=== PATIENT | male | born 1975 | race Caucasian/White ===

== ENCOUNTER 2017-08-12 11:34 | Outpatient (CLI) | payer MEDICAID, SELFPAY ==
[2017-08-12 11:44] VITALS: BP 120/80; PULSE 83; RESP 18; TEMP 36.7; O2SAT 96
== END 2017-08-12 12:00 | disposition home or self-care (01) ==
LOC: INF 11:36
PROVIDERS: PCP Family Medicine; Visit Provider Surgery
DX: Z01.818 Encounter for other preprocedural examination (principal); K46.9 Unspecified abdominal hernia without obstruction or gangrene; R10.32 Left lower quadrant pain
CPT/HCPCS: 96372

== ENCOUNTER → 2017-08-21 09:38 | Outpatient (CLI) | payer MEDICAID, SELFPAY ==
--- NOTE | 2017-08-21 09:40 | MR_ITS ---
MR pelvis wo con HISTORY: Left lower quadrant pain ITS.REASON: hernia,lower abd pain ORDERING PHYSICIAN: Tucker Renteria MD PATIENT AGE: 42 years Comparison: 08/04/2017 TECHNIQUE: Standard multiplanar multiecho sequences are performed without contrast of the pelvis. This is supplemented with oblique axial images to better evaluate the abdominal wall. FINDINGS: There is a small defect within the the fascia just inferior to the inferior margin of the transverses abdominis with some fat extending from the external iliac region lateral to the inferior epigastric artery consistent with a small indirect abdominal wall hernia. This does not extend into the inguinal canal. There is no abnormal signal intensity of the symphysis pubis or of the aponeurosis of the abdominal wall musculature with the symphysis pubis. IMPRESSION: Small defect within the left lateral and inferior abdominal wall containing fat with some minimal bulging of the fat in the left inguinal region consistent with a small indirect abdominal wall hernia.
== END ==
PROVIDERS: Family Provider Family Medicine; PCP Family Medicine; Visit Provider Surgery
DX: K46.9 Unspecified abdominal hernia without obstruction or gangrene (principal); R10.32 Left lower quadrant pain
CPT/HCPCS: 72195

== ENCOUNTER → 2017-09-30 08:19 | Outpatient (CLI) | payer MEDICAID, SELFPAY ==
--- NOTE | 2017-09-30 08:20 | US_ITS ---
US abdomen limited History:Right upper quadrant pain Ordering Physician:Tucker Renteria MD Patient Age: 42 years Comparison:None Findings: Pancreas:Unremarkable. No obvious mass or abnormal fluid collection. No ductal dilatation Liver:No focal liver lesions demonstrated. Homogeneous echogenicity. No intrahepatic biliary ductal dilatation evident Right Kidney:Unremarkable. Normal size and echogenicity. No hydronephrosis Gallbladder:No gallstones, gallbladder wall thickening, pericholecystic fluid, or biliary dilatation. Impression:Negative gallbladder/right upper quadrant ultrasound
== END ==
PROVIDERS: Family Provider Family Medicine; PCP Family Medicine; Visit Provider Surgery
DX: R10.11 Right upper quadrant pain (principal)
CPT/HCPCS: 76705

== ENCOUNTER → 2017-10-17 10:27 | Outpatient (CLI) | payer MEDICAID, SELFPAY ==
--- NOTE | 2017-10-17 10:30 | NM_ITS ---
HEPATOBILIARY SCAN WITH FATTY MEAL/ENSURE ORDERING PHYSICIAN : Tucker Renteria MD PATIENT AGE: 42 years GENDER: Male HISTORY: Right upper quadrant pain and nausea. Gallbladder thickening Following 7.94 millicuries Tc Choletec, images of the RUQ were obtained. There is prompt uptake of radionuclide by the liver which is grossly unremarkable. Small bowel is visualized. This initial portion of the study is normal. The gallbladder was allowed to fill out to 60 minutes. Fatty meal/1 can of ensure over administered with imaging performed over 60 minutes minutes. Thereafter. The obtain data was analyzed and reveals a 92 % gallbladder ejection fraction (normal greater than 50%; borderline 35-50%). This is normal value . Visual inspection which supports that there is significant contraction of the gallbladder as well IMPRESSION: Normal functioning gallbladder. 92 % % gallbladder ejection fraction by computer analysis. No pain with fatty meal.
== END ==
PROVIDERS: Family Provider Family Medicine; PCP Family Medicine; Visit Provider Surgery
DX: R10.11 Right upper quadrant pain (principal)
CPT/HCPCS: 78226; A9537

== ENCOUNTER → 2020-03-15 13:25 | Outpatient (CLI) | payer OTHER, SELFPAY ==
[2020-03-15 13:47] LABS: Basophils % 0.8 % (0.1-2.0); Eosinophils # 0.1 K/mm3 (0.0-0.4); Eosinophils % 1.3 % (0.1-12.0); Hematocrit 47.4 % (42.0-52.0); Hemoglobin 15.1 g/dL (14.1-18.0); Lymphocytes % 39.6 % (10-50); Mean Corpuscular HGB Conc 31.9 g/dL (31.8-35.4); Mean Corpuscular Hemoglobin 29.3 pg (27.0-31.2); Mean Corpuscular Volume 91.9 fl (80-94); Mean Platelet Volume 8.6 fl (7.4-10.4); Monocytes # 0.3 K/mm3 (0.1-1.0); Monocytes % 5.6 % (1.7-9.3); Neutrophils # 2.6 K/mm3 (1.8-7.8); Neutrophils % 52.7 % (37.0-80.0); Platelet Count 180 K/mm3 (142-424); Red Blood Count 5.16 M/mm3 (4.60-6.20); Red Cell Distribution Width 12.9 % (11.5-17.5)
[2020-03-15 14:04] LABS: Chloride 105 mmol/L (98-107); Potassium 4.4 mmoL/L (3.5-5.1); Sodium 142 mmol/L (136-145)
[2020-03-15 14:07] LABS: Alanine Aminotransferase 15 U/L (12-78); Albumin Level 4.9 g/dl (3.5-5.0); Albumin/Globulin Ratio 1.8 (1.1-1.8); Alkaline Phosphatase 64 U/L (38-126); Anion Gap 9.4 mEq/L (5-15); Aspartate Amino Transferase 25 U/L (17-59); Bilirubin,Total 0.7 mg/dl (0.2-1.3); Blood Urea Nitrogen 14 mg/dl (9-20); Carbon Dioxide 32 mmol/L (22.0-30.0); Estimated Glomerular Filt Rate 93 ml/min (>60); GFR (African American) 112 ML/MIN (>60); Globulin 2.7 g/dL (1.3-3.2); Glucose 95 mg/dl (74-100); Total Protein,Serum 7.6 g/dl (6.3-8.2)
== END ==
PROVIDERS: Visit Provider Surgery
DX: R10.11 Right upper quadrant pain (principal)
CPT/HCPCS: 36415; 80053; 85025

== ENCOUNTER → 2020-03-20 08:29 | Outpatient (CLI) | payer OTHER, SELFPAY ==
--- NOTE | 2020-03-20 08:29 | US_ITS ---
PROCEDURE: US GALLBLADDER CLINICAL INDICATION: right upper quad pain COMPARISON: No exams were available for comparison FINDINGS: Pancreas: Pancreas is not well delineated due to overlying bowel gas. CT or MRI without and with contrast with pancreatic protocol may provide further evaluation if clinically desired. Liver: Unremarkable. There is appropriate direction of blood flow within a non dilated portal vein. Right kidney: Unremarkable appearing. No hydronephrosis. Gallbladder: No stones are evident. There is no gallbladder wall thickening. Common duct is normal in diameter. IMPRESSION: Unremarkable gallbladder ultrasound. The pancreas is not imaged Dictated by: Geoff Zuniga MD 03/22/2020 08:49 Geoff Zuniga MD in [place] 03/22/2020 08:49
== END ==
PROVIDERS: PCP Family Medicine; Visit Provider Surgery
DX: R10.11 Right upper quadrant pain (principal)
CPT/HCPCS: 76705

== ENCOUNTER → 2020-04-11 10:37 | Outpatient (CLI) | payer OTHER, SELFPAY ==
--- NOTE | 2020-04-11 10:37 | NM_ITS ---
PROCEDURE: NM HEPATOBILIARY W PHARM CLINICAL INDICATION: Right upper quad pain COMPARISON: No exams were available for comparison TECHNIQUE: DOSE: 8.1 mCi technetium Choletec and 1.7 mcg of CCK. FINDINGS: Homogeneous activity is present within the hepatic parenchyma. Activity is present in the gallbladder by 10 minutes. Activity is present in the small bowel by 10 minutes. The gallbladder ejection fraction is calculated to be 96 percent. CCK-The patient did not report pain or other symptoms during CCK infusion. IMPRESSION: Unremarkable hepatobiliary scan with normal gallbladder ejection fraction Dictated by: Geoff Zuniga MD 04/11/2020 17:18 Geoff Zuniga MD in [facility] 04/11/2020 17:18
--- NOTE | 2020-04-11 10:50 | HMH.ITSHM ---
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 []BLOOD PRESSURE MED
== END ==
PROVIDERS: PCP Family Medicine; Visit Provider Surgery
DX: R10.11 Right upper quadrant pain (principal)
CPT/HCPCS: 78227; A9537; J2805

== ENCOUNTER 2021-09-09 21:25 | Observation (INO) | payer OTHER, SELFPAY ==
[2021-09-09 21:25] VITALS: BP 202/114; PULSE 81; RESP 20; TEMP 36.6; O2SAT 99; BMI 26.4
[2021-09-09 22:00] VITALS: BP 140/90; PULSE 67; RESP 14; O2SAT 96
--- NOTE | 2021-09-09 22:13 | CT_ITS ---
PROCEDURE INFORMATION: Exam: CT Head Without Contrast Exam date and time: 09/09/2021 11:11 PM Age: 46 years old Clinical indication: Weakness, extremity; Left; Additional info: Numbness left arm TECHNIQUE: Imaging protocol: Computed tomography of the head without contrast. Radiation optimization: All CT scans at this facility use at least one of these dose optimization techniques: automated exposure control; mA and/or kV adjustment per patient size (includes targeted exams where dose is matched to clinical indication); or iterative reconstruction. COMPARISON: No relevant prior studies available. FINDINGS: Brain: The IACs are grossly normal. No extra-axial fluid collections. No evidence of acute intracranial hemorrhage. No CT evidence of large territory acute or subacute intracranial ischemia/infarct. No intracranial mass lesions. No midline shift or herniation. Cerebral ventricles: Ventricles normal. Pituitary gland and sella: The sella is grossly normal. Paranasal sinuses: Opacified left posterior ethmoid air cell suggesting mild changes of chronic sinus inflammatory disease. No fluid levels. Mastoid air cells: Visualized mastoid air cells are clear. Bones/joints: The calvarium and visualized facial bones are intact. Soft tissues: The scalp and visualized soft tissues demonstrate no acute abnormality. Vasculature: The visualized major intracranial arterial segments demonstrate no gross abnormality by noncontrast CT. No asymmetric vascular hyperdensities suggestive of thrombosis are identified. Other findings: Visualized orbital contents demonstrate no acute abnormality. Fontenot-white differentiation is well maintained. IMPRESSION: No acute intracranial process. No intracranial hemorrhage or mass effect.
--- NOTE | 2021-09-09 22:13 | XR_ITS ---
PROCEDURE INFORMATION: Exam: XR Chest Exam date and time: 09/09/2021 11:02 PM Age: 46 years old Clinical indication: Sternal or substernal pain; Additional info: Cp and left arm weakness TECHNIQUE: Imaging protocol: Radiologic exam of the chest. Views: 2 views. COMPARISON: ABDPELWO CT abdomen pelvis wo con 08/04/2017 2:44 PM FINDINGS: Lungs: Normal pulmonary expansion. Pulmonary vasculature grossly normal. No gross pulmonary infiltrates or edema pattern. Pleural spaces: No pleural effusion. No pneumothorax. Heart/Mediastinum: Heart size normal. No tracheal/mediastinal shift. Bones/joints: No acute osseous abnormalities are identified. IMPRESSION: No acute thoracic process.
--- NOTE | 2021-09-09 22:16 | ECG_ITS ---
APPROVED REPORT Exam: Resting ECG HR:78 bpm ECG Measurements Heart Rate 78 AXES MT 149 P 79 QRSd 87 QRS 90 QT 377 T 45 QTc 410 Conclusion SINUS RHYTHM NORMAL ECG UNCONFIRMED REPORT Electronically signed by : Sundar Ellsworth MD 09/11/2021 21:11:12
[2021-09-09 22:30] LABS: Basophils # 0.1 K/mm3 (0-0.2); Basophils % 0.5 % (0.1-2.0); Eosinophils % 0.3 % (0.1-12.0); Hematocrit 46.6 % (42.0-52.0); Hemoglobin 16.1 g/dL (14.1-18.0); Lymphocytes # 2.7 K/mm3 (0.7-4.5); Lymphocytes % 17.6 % (10-50); Mean Corpuscular HGB Conc 34.5 g/dL (31.8-35.4); Mean Corpuscular Hemoglobin 30.9 pg (27.0-31.2); Mean Corpuscular Volume 89.4 fl (80-94); Monocytes # 0.9 K/mm3 (0.1-1.0); Monocytes % 5.9 % (1.7-9.3); Neutrophils # 11.5 K/mm3 (1.8-7.8); Neutrophils % 75.7 % (37.0-80.0); Platelet Count 235 K/mm3 (142-424); Red Blood Count 5.21 M/mm3 (4.60-6.20); Red Cell Distribution Width 13.2 % (11.5-17.5); White Blood Count 15.1 K/mm3 (4.8-10.8)
[2021-09-09 22:31] VITALS: BP 141/89; PULSE 63; RESP 14; O2SAT 98
[2021-09-09 22:33] LABS: Alanine Aminotransferase 32 U/L (12-78); Albumin Level 4.7 g/dl (3.5-5.0); Alkaline Phosphatase 81 U/L (38-126); Anion Gap 13.5 mEq/L (5-15); Aspartate Amino Transferase 35 U/L (17-59); Bilirubin,Indirect 0.4 mg/dL (0.0-0.9); Bilirubin,Total 0.4 mg/dl (0.2-1.3); Bilirubin,Unconjugated 0.6 mg/dL (0.0-1.1); Blood Urea Nitrogen 13 mg/dl (9-20); Carbon Dioxide 25 mmol/L (22.0-30.0); Chloride 108 mmol/L (98-107); Creatinine Clearance Estimated 104 mL/min (50-200); Estimated Glomerular Filt Rate 73 ml/min (>60); GFR (African American) 88 ML/MIN (>60); Glucose 153 mg/dl (74-100); Magnesium 2.1 mg/dl (1.6-2.3); Potassium 3.5 mmoL/L (3.5-5.1); Sodium 143 mmol/L (136-145); Total Protein,Serum 7.6 g/dl (6.3-8.2)
[2021-09-09 22:44] LABS: NT Pro Brain Natriuretic Pep. 75.3 pg/mL (0-125)
[2021-09-09 22:46] LABS: MANUAL DIFFERENTIAL MANUAL DIFFERENTIAL (MANUAL DIFF)
[2021-09-09 22:50] LABS: Troponin I < 0.01 ng/ml (0.00-0.034)
[2021-09-09 22:52] LABS: Lymphocytes % 12 % (10-50); Monocytes % 3 % (2-9); Neutrophils % 81 % (42-76); Platelet Estimate Normal; RBC Morphology Normal; Total Cells Counted 100
[2021-09-09 22:54] LABS: Erythrocyte Sedimentation Rate 4 mm/hr (0-15)
[2021-09-09 23:00] VITALS: BP 155/99; PULSE 66; RESP 14; O2SAT 97
[2021-09-09 23:30] VITALS: BP 156/100; PULSE 62; RESP 15; O2SAT 97
[2021-09-10] VITALS (11 sets, daily range): BP systolic 130–157; BP diastolic 77–100; PULSE 50–77; RESP 9–20; TEMP 36.4–36.8; O2SAT 96–99; BMI 26.8; BMI 30.8; BMI 30.9
--- NOTE | 2021-09-10 00:44 | HMH.EDCP ---
ED Disposition Clinical Impression: Tobacco use Chest pain Qualifiers: Chest pain type: precordial pain Qualified Code(s): R07.2 - Precordial pain Hypertensive disease Qualifiers: Hypertension type: primary hypertension Qualified Code(s): I10 - Essential (primary) hypertension Disposition: Admitted as Observation Condition on Discharge: Good Referrals: Fransisco Pedro MD [Primary Care Provider] - - Critical Care Critical Care Time: No Attestation: On 09/09/21, the high probability of a clinically significant, sudden or life threatening deterioration of the following system(s) required my full and direct attention, intervention and personal management. The time I documented below is in addition to time spent performing reported procedures but includes the following listed in this critical care notation. Medical Decision Making - Medical Records Medical records reviewed: Yes: I reviewed the patient's medical records. - Sergio Inquiry Pt receiving controlled substance: No Vital Signs: 09/09/21 21:25 Temperature 97.8 F Temperature Source Oral Pulse Rate [Right] 81 Respiratory Rate 20 Blood Pressure [Right Arm] 202/114 H Blood Pressure Mean [Right Arm] 143 Blood Pressure Source [Right Arm] Automatic Cuff 02 Sat by Pulse Oximetry 99 Oxygen Delivery Method Room Air - Lab Data Lab results reviewed: Yes: I reviewed the patient's lab results. Lab Results 09/09/21 21:26: WBC 15.1 H, RBC 5.21, Hgb 16.1, Hct 46.6, MCV 89.4, MCH 30.9, MCHC 34.5, RDW 13.2, Plt Count 235, MPV 9.0, Neut % (Auto) 75.7, Lymph % (Auto) 17.6, Cocke % (Auto) 5.9, Eos % (Auto) 0.3, Baso % (Auto) 0.5, Neut # (Auto) 11.5 H, Lymph # (Auto) 2.7, Cocke # (Auto) 0.9, Eos # (Auto) 0.0, Baso # (Auto) 0.1, Total Counted 100, Neutrophils % (Manual) 81 H, Band Neutrophils % 4.0, Lymphocytes % (Manual) 12, Monocytes % (Manual) 3, Platelet Estimate Normal, RBC Morphology Normal, ESR 4 09/09/21 21:26: Sodium 143, Potassium 3.5, Chloride 108 H, Carbon Dioxide 25, Anion Gap 13.5, BUN 13, Creatinine 1.10, Estimated Creat Clear 104, Estimated GFR 73, Est GFR ( Amer) 88, Glucose 153 H, Calcium 10.0, Magnesium 2.1, Troponin I < 0.01, C-Reactive Protein 4.0, Procalcitonin 0.040 09/09/21 21:26: NT-Pro-B Natriuret Pep 75.3 09/09/21 21:26: Total Bilirubin 0.4, Direct Bilirubin 0.0, Conjugated Bilirubin 0.0, Indirect Bilirubin 0.4, Unconjugated Bilirubin 0.6, AST 35, ALT 32, Alkaline Phosphatase 81, Total Protein 7.6, Albumin 4.7 Result diagrams: 09/09/21 21:26 09/09/21 21:26 Orders (Tests/Meds): ED MEDICATIONS Generic Name Dose Route Start Last Admin Trade Name Freq PRN Reason Stop Dose Admin Sodium Chloride 1,000 mls @ 999 mls/hr 09/09/21 22:30 09/09/21 22:20 Sod Chlor 0.9% 1000ml Bag IV 09/09/21 23:30 999 mls/hr .Q1H1M INESSA Administration Discontinued Medications Generic Name Dose Route Start Last Admin Trade Name Freq PRN Reason Stop Dose Admin Aspirin 324 mg 09/09/21 22:16 09/09/21 22:20 Aspirin 81mg Chewable Tablet PO 09/09/21 22:17 324 mg ONCE ONE Administration Nitroglycerin 0.4 mg 09/09/21 22:16 09/09/21 22:19 Nitroglycerin 0.4mg Sl Tablet SL 09/09/21 22:17 0.4 mg ONCE ONE Administration ORDERS Category Date Time Status Rapid PCR Covid and Flu A/B Stat Lab 09/09/21 22:13 Ordered Troponin I Q3H Lab 09/10/21 01:15 Ordered Troponin I Q3H Lab 09/10/21 04:15 Ordered UA [Urinalysis and Microscopic] Stat Lab 09/09/21 22:16 Ordered - Radiology Data #1 Image(s): Chest Image Reviewed: Yes I have reviewed radiologist's interpretation Preliminary Findings: Normal/NAD - CT Data CT Scan: Head Time Received: 00:[address] Reviewed: Yes: I have viewed the radiologist's interpretation Preliminary Findings: Normal/NAD - ECG Data Tracing #1 Normal Sinus Rhythm: Yes Ischemic changes: non-specific ST-T wave changes - Physician Consults Physician Consulted: reji Reason -: A
[2021-09-10 00:50] LABS: Coronavirus 19, PCR Not Detected (NotDetected); Influenza A, PCR Not Detected (NotDetected); Influenza B, PCR Not Detected (NotDetected)
[2021-09-10 01:50] LABS: Troponin I < 0.01 ng/ml (0.00-0.034)
--- NOTE | 2021-09-10 02:03 | PC.NURSE ---
patient up to floor via wheelchair @ this time.
[2021-09-10 04:25] LABS: Basophils % 0.5 % (0.1-2.0); Eosinophils # 0.1 K/mm3 (0.0-0.4); Mean Corpuscular Volume 89.2 fl (80-94)
[2021-09-10 04:31] LABS: Eosinophils % 1.3 % (0.1-12.0); Hematocrit 39.3 % (42.0-52.0); Lymphocytes # 2.4 K/mm3 (0.7-4.5); Lymphocytes % 37.6 % (10-50); Mean Corpuscular HGB Conc 34.7 g/dL (31.8-35.4); Mean Platelet Volume 8.5 fl (7.4-10.4); Monocytes # 0.4 K/mm3 (0.1-1.0); Monocytes % 5.9 % (1.7-9.3); Neutrophils # 3.5 K/mm3 (1.8-7.8); Neutrophils % 54.6 % (37.0-80.0); Platelet Count 167 K/mm3 (142-424); Red Blood Count 4.41 M/mm3 (4.60-6.20); Red Cell Distribution Width 13.2 % (11.5-17.5); White Blood Count 6.4 K/mm3 (4.8-10.8)
[2021-09-10 04:32] LABS: Hemoglobin 13.7 g/dL (14.1-18.0)
[2021-09-10 04:33] LABS: Anion Gap 6.5 mEq/L (5-15); Blood Urea Nitrogen 15 mg/dl (9-20); Calcium 8.4 mg/dl (8.4-10.2); Carbon Dioxide 26 mmol/L (22.0-30.0); Chloride 114 mmol/L (98-107); Chol/HDL Ratio 4.4 (1-3.5); Cholesterol 200 mg/dl (140-200); Creatinine Clearance Estimated 128 mL/min (50-200); Estimated Glomerular Filt Rate 92 ml/min (>60); GFR (African American) 111 ML/MIN (>60); HDL Cholesterol 45 mg/dl (40-60); Potassium 4.5 mmoL/L (3.5-5.1); Sodium 142 mmol/L (136-145); Triglycerides 83 mg/dl (30-150); VLDL Cholesterol 17 mg/dL (0-40)
[2021-09-10 04:36] LABS: Glucose 100 mg/dl (74-100)
[2021-09-10 04:37] LABS: Magnesium 1.8 mg/dl (1.6-2.3)
[2021-09-10 04:51] LABS: Troponin I < 0.01 ng/ml (0.00-0.034)
--- NOTE | 2021-09-10 06:21 | PC.NURSE ---
No acute changes. Pt has rested well. Denies CP or soa. Pt c/o neck pain and numbness in (L) arm when pt arrived to floor. VSS. BP has improved. Waiting to obtain UA from pt. Pt NPO. Call light within reach. Family at bedside.
--- NOTE | 2021-09-10 07:12 | P.CONPHA_ITS ---
[facility] Pharmacy VTE Monitoring - Patient Demographics Admission date: 09/10/21 Report Date: 09/10/21 Time: 07:12 Allergies/Adverse Reactions: Patient Allergies No Known Allergies Allergy (Verified 04/12/20 09:49) Height: 1.68 m Weight: 87.407 kg Patient Problems: Current Active Problems Chest pain (Acute) Hypertensive disease (Acute) Tobacco use (Acute) - VTE Risk Labs: VTE Related Lab Results Hgb 13.7 g/dL (14.1-18.0) L D 09/10/21 04:15 Hct 39.3 % (42.0-52.0) L 09/10/21 04:15 Plt Count 167 K/mm3 (142-424) D 09/10/21 04:15 BUN 15 mg/dl (9-20) 09/10/21 04:15 Creatinine 0.90 mg/dl (0.66-1.25) 09/10/21 04:15 Estimated Creat Clear 128 mL/min (50-200) 09/10/21 04:15 - Prophylaxis VTE Prophylaxis Ordered?: Yes Types of VTE Prophylaxis: TEDS Knee High Location of Applied Device: Bilateral Lower Extremeties
--- NOTE | 2021-09-10 07:12 | HMH.PHAINT ---
MEDICATION RECONCILIATION COMPLETED ON PATIENT VIA PATIENT INTERVIEW. PATIENT TAKES LOSARTAN 50MG, BUT DOES NOT TAKE REGULARLY. -LEON CRUZ, MIGUEL ANGELD
--- NOTE | 2021-09-10 08:00 | CA_ITS ---
APPROVED REPORT EXAM: Comprehensive 2D, Doppler, and color-flow Echocardiogram [employer]: Jenni Avelar RDCS Ht: 5 ft 11 in Wt: 190lbs BSA: 2.06 BP: 202/114 mmHg Indications: CP,HTN, M-Mode Dimensions RVDd 1.83 cm (0.9-2.6) LA Diam 3.85 cm (1.9-4.0) LVDd 6.10 cm (3.5-5.7) Ao Diam 2.78 cm (2.0-3.7) LVDs 3.89 cm (3.5-5.7) IVSd 0.80 cm (0.6-1.1) PWd 0.84 cm (0.6-1.1) EF (Teich) 65.00% FS 36.20% EDV (Teich) 186.90 mL TAPSE 2.13 (<1.7) ESV (Teich) 65.50 mL LV Diastology E Decel Time 127.00 (160-240 msec) E/A Ratio 1.2 MED E' 11.70 (< 7 cm/sec) E'/MED E' Ratio 5.50 (>14) LAT E' 12.20 (<10 cm/sec) E/LAT E' Ratio 5.27 (>14) Mitral Valve MV E Max George. 64.00 (40-130 cm/s) MV A Velocity 53.00 (40-130 cm/s) E/A Ratio 1.21 MV Decel. Time 127.00 (160-240 ms) MV PHT 37.00 ms Tricuspid Valve TR P. Velocity 187.00 cm/s RAP Estimate 10.00 mmHg RVSP 24.00 mmHg Left Ventricle Left atrium normal size left ventricle is normal size there is no concentric left ventricular hypertrophy, estimated ejection fraction 55% with no regional wall motion abnormality, diastolic parameters are within normal range. Right Ventricle Right atrium and right ventricle are normal size and contractility. Aortic Valve Aortic valve is minimally thickened and fibrosed there is trace aortic insufficiency. Mitral Valve Mitral valve is grossly normal, there is trace mitral regurgitation. Tricuspid Valve Tricuspid valve grossly normal, there is trace tricuspid regurgitation, tricuspid regurgitation jet velocity is inadequate for calculation of the right ventricular systolic pressure. Pulmonic Valve Pulmonic valve is poorly visualized. Great Vessels Aortic root is normal size. Inferior vena cava is normal size with normal inspiratory collapse. Pericardium No significant pericardial effusion noted. Conclusion 1. Normal left ventricular size, preserved left ventricular systolic function, estimated ejection fraction 55% with no regional wall motion abnormality, diastolic parameters are within normal range. 2. Trace aortic, mitral and tricuspid regurgitation. 3. No significant pericardial effusion noted. 4. Inferior vena cava is normal size with normal inspiratory collapse. Electronically signed by : Oren Mcgill MD 09/10/2021 19:34:37
--- NOTE | 2021-09-10 09:06 | HMH.CNCARD ---
History of Present Illness Consult date: 09/10/21 Requesting physician: Rubio Cyr Chief complaint: chest pain, arm pain Additional Medical History:: 1. Hypertension with medication noncompliance 2. Hyperlipidemia 3. Tobacco use 4. Alcohol use History of present illness: 46-year-old white male admitted through the ER for 1 hour of left arm numbness with chest heaviness and associated diaphoresis. In addition to the chest discomfort and left arm discomfort patient describes perioral numbness and drawing up of his hands with what sounds like hyperventilation. Evaluation in the ER revealed elevated blood pressure of 202/114 mmHg. He was given sublingual nitroglycerin with improvement in both blood pressure and chest discomfort. His troponins have returned normal x3 overnight. His EKG showed sinus rhythm with no acute ST segment changes. Preliminary echocardiogram shows preserved ejection fraction with no significant valve disease. In further questioning the patient has a history of hypertension but only takes his medication as he thinks he needs it. He does complain of recent visual changes and headaches. When asked about his smoking and drinking he is elusive in both answers. [facility] [place] History Medical History: Reports:: Hypertension, Seizures Denies:: Diabetes Mellitus Type 1, Diabetes Mellitus Type 2, Internal Pacemaker, Lung Disease *Have you ever received a pneumonia vaccine?: No *Have you received a flu vaccine this season?: No Laterality Cases: Bilateral: Tonsillectomy Other Surgeries: Yes: Colonoscopy, EGD, Hernia Repair. No: Pacemaker - *Social History Smoking Status: Current every day smoker Tobacco Type: cigarettes # Packs/Day (cigarettes): 1 Alcohol Intake: current Alcohol Intake Frequency:: holidays/special occasions only Substance Use Type: marijuana *Occupational Status:: employed *Travel in the last 8 weeks: Inside the [facility] Family Hx:: Cancer, Coronary Artery Disease, Diabetes, Heart Attack, Hyperlipidemia, Hypertension Meds Home Medications Medication Instructions Recorded Confirmed Type losartan 50 mg tablet 50 mg PO DAILY tab 04/12/20 09/10/21 History Allergies Allergy/AdvReac Type Severity Reaction Status Date / Time No Known Allergies Allergy Verified 04/12/20 09:49 Exam Vital signs and Labs for Last 24 Hours: Temp Pulse Resp BP Pulse Ox 97.7 F 59 L 14 134/81 99 09/10/21 08:00 09/10/21 08:00 09/10/21 08:00 09/10/21 08:00 09/10/21 08:00 Laboratory Results - last 24 hr 09/09/21 21:26: WBC 15.1 H, RBC 5.21, Hgb 16.1, Hct 46.6, MCV 89.4, MCH 30.9, MCHC 34.5, RDW 13.2, Plt Count 235, MPV 9.0, Neut % (Auto) 75.7, Lymph % (Auto) 17.6, Sterling % (Auto) 5.9, Eos % (Auto) 0.3, Baso % (Auto) 0.5, Neut # (Auto) 11.5 H, Lymph # (Auto) 2.7, Sterling # (Auto) 0.9, Eos # (Auto) 0.0, Baso # (Auto) 0.1, Total Counted 100, Neutrophils % (Manual) 81 H, Band Neutrophils % 4.0, Lymphocytes % (Manual) 12, Monocytes % (Manual) 3, Platelet Estimate Normal, RBC Morphology Normal, ESR 4 09/09/21 21:26: Sodium 143, Potassium 3.5, Chloride 108 H, Carbon Dioxide 25, Anion Gap 13.5, BUN 13, Creatinine 1.10, Estimated Creat Clear 104, Estimated GFR 73, Est GFR ( Amer) 88, Glucose 153 H, Calcium 10.0, Magnesium 2.1, Troponin I < 0.01, C-Reactive Protein 4.0, Procalcitonin 0.040 09/09/21 21:26: NT-Pro-B Natriuret Pep 75.3 09/09/21 21:26: Total Bilirubin 0.4, Direct Bilirubin 0.0, Conjugated Bilirubin 0.0, Indirect Bilirubin 0.4, Unconjugated Bilirubin 0.6, AST 35, ALT 32, Alkaline Phosphatase 81, Total Protein 7.6, Albumin 4.7 09/10/21 00:45: SARS-CoV-2 (PCR) Not detected, Influenza A Untype (PCR) Not detected, Influenza Type B (PCR) Not detected 09/10/21 01:00: Troponin I < 0.01 09/10/21 04:15: WBC 6.4 D, RBC 4.41 L, Hgb 13.7 L D, Hct 39.3 L, MCV 89.2, MCH 31.0, MCHC 34.7, RDW 13.2, Plt Count 167 D, MPV 8.5, Neut % (Auto) 54.6, Lymph % (Auto) 37.6, Sterling % (Auto) 5.9, Eos % (Auto) 1.3, Baso % (A
[2021-09-10 10:50] LABS: Microscopic, Urine URINE MICROSCOPIC (MICROSCOPIC)
[2021-09-10 10:52] LABS: Appearance,Urine CLEAR (Clear); Bilirubin,Urine Negative (Negative); Blood, Urine Negative (Negative); Color,Urine YELLOW (Yellow); Glucose,Urine (UA) Negative (Negative); Ketones,Urine 1+ (Negative); Leukocyte Esterase,Urine TRACE (Negative); Nitrate,Urine Negative (Negative); PH,Urine 6.5 (5.0-8.5); Protein,Urine Negative (Negative)
[2021-09-10 11:15] LABS: Bacteria,Urine Trace /lpf
--- NOTE | 2021-09-10 13:43 | HMH.HPDC ---
<Johanne Balderrama - Last Filed: 09/10/21 14:32> General - General Admission date:: 09/10/21 Discharge date: 09/10/21 *Admission Date: 09/10/21 *Chief complaint: Chest pain *History of present illness: Documentation as per cardiology this a.m.: 46-year-old white male admitted through the ER for 1 hour of left arm numbness with chest heaviness and associated diaphoresis. In addition to the chest discomfort and left arm discomfort patient describes perioral numbness and drawing up of his hands with what sounds like hyperventilation. Evaluation in the ER revealed elevated blood pressure of 202/114 mmHg. He was given sublingual nitroglycerin with improvement in both blood pressure and chest discomfort. His troponins have returned normal x3 overnight. His EKG showed sinus rhythm with no acute ST segment changes. Preliminary echocardiogram shows preserved ejection fraction with no significant valve disease. In further questioning the patient has a history of hypertension but only takes his medication as he thinks he needs it. He does complain of recent visual changes and headaches. When asked about his smoking and drinking he is elusive in both answers. At the time of this exam patient is comfortable. Denies chest pain and shortness of breath. He is hungry for breakfast. [facility] History Medical History: Reports:: Hypertension, Seizures Denies:: Diabetes Mellitus Type 1, Diabetes Mellitus Type 2, Internal Pacemaker, Lung Disease *Have you ever received a pneumonia vaccine?: No *Have you received a flu vaccine this season?: No Laterality Cases: Bilateral: Tonsillectomy Other Surgeries: Yes: Colonoscopy, EGD, Hernia Repair. No: Pacemaker - *Social History Smoking Status: Current every day smoker Tobacco Type: cigarettes # Packs/Day (cigarettes): 1 Alcohol Intake: current Alcohol Intake Frequency:: holidays/special occasions only Substance Use Type: marijuana *Occupational Status:: employed Housing: house Household Members: none *Travel in the last 8 weeks: Inside the [place] Family Hx:: Cancer, Coronary Artery Disease, Diabetes, Heart Attack, Hyperlipidemia, Hypertension Review of Systems - Constitutional Denies body ache(s), Denies fever(s) - Eyes Reports change in vision - ENT Reports dizziness, Denies ear pain, Denies sore throat - *Cardiovascular Reports chest pain, Reports shortness of breath, Denies irregular heart rhythm, Denies leg swelling - *Respiratory Reports shortness of breath, Denies chest congestion, Denies cough - *Gastrointestinal Denies abdominal pain, Denies loose stools, Denies vomiting blood, Denies bright, red blood in stools, Denies nausea, Denies vomiting - *Genitourinary Denies difficulty urinating - *Musculoskeletal Denies abnormal walking, Denies body aches - *Neurologic Denies abnormal walking, Denies behavioral changes, Denies seizure-like activity, Denies unsteadiness, Denies frequent falls, Denies seizure-like activity Exam Vital signs and Labs for Last 24 Hours: Temp Pulse Resp BP Pulse Ox 97.5 F L 65 16 135/77 99 09/10/21 11:35 09/10/21 11:35 09/10/21 11:35 09/10/21 11:35 09/10/21 11:35 Laboratory Results - last 24 hr 09/09/21 21:26: WBC 15.1 H, RBC 5.21, Hgb 16.1, Hct 46.6, MCV 89.4, MCH 30.9, MCHC 34.5, RDW 13.2, Plt Count 235, MPV 9.0, Neut % (Auto) 75.7, Lymph % (Auto) 17.6, Sanders % (Auto) 5.9, Eos % (Auto) 0.3, Baso % (Auto) 0.5, Neut # (Auto) 11.5 H, Lymph # (Auto) 2.7, Sanders # (Auto) 0.9, Eos # (Auto) 0.0, Baso # (Auto) 0.1, Total Counted 100, Neutrophils % (Manual) 81 H, Band Neutrophils % 4.0, Lymphocytes % (Manual) 12, Monocytes % (Manual) 3, Platelet Estimate Normal, RBC Morphology Normal, ESR 4 09/09/21 21:26: Sodium 143, Potassium 3.5, Chloride 108 H, Carbon Dioxide 25, Anion Gap 13.5, BUN 13, Creatinine 1.10, Estimated Creat Clear 104, Estimated GFR 73, Est GFR ( Amer) 88, Glucose 153 H, Calcium 10.0, Magnesium 2.1, Troponin I < 0.01, C[place]
--- NOTE | 2021-09-10 14:34 | HMH.PHAINT ---
DISCHARGE MEDICATION COUNSELING PROVIDED TO PATIENT. DISCUSSED NEW METOPROLOL SUCCINATE PRESCRIPTION. DISCUSSED TO TAKE DAILY, WATCH FOR DIZZINESS, LIGHTHEADEDNESS, SLOWED HEART RATE. TOLD THE NEW PRESCRIPTION AND REFILLS FOR LOSARTAN [facility] SU[facility] SPECIAL[facility]. ASKED PATIENT IF HE MONITORS BLOOD PRESSURE AT HOME AND HE STATED HE DOES AND WILL MONITOR MORE FREQUENTLY SINCE STARTING NEW MEDICATION. PATIENT ENDORSED NO QUESTIONS AT THIS TIME.
--- NOTE | 2021-09-12 11:59 | CARE MANAGER ---
Contacted patient related to hospital discharge. States that he is keeping track of his blood pressure and taking the new blood pressure medication and it is doing much better. We discussed his follow up appointments and he denied other questions or concerns. HENRIK Robertson
== END 2021-09-10 15:15 | disposition home or self-care (01) ==
LOC: ER 21:52 → 2ND 09-10 00:54
PROVIDERS: Admitting Provider Family Medicine; Emergency Provider Emergency Medicine; PCP Family Medicine; Visit Provider Family Medicine
DX: R07.9 Chest pain, unspecified (principal); I10 Essential (primary) hypertension; F17.210 Nicotine dependence, cigarettes, uncomplicated; Z91.19 Patient's noncompliance with other medical treatment and regimen; G40.909 Epilepsy, unspecified, not intractable, without status epilepticus; Z82.49 Family history of ischemic heart disease and other diseases of the circulatory system
CPT/HCPCS: 36415; 70450; 71046; 80048; 80061; 80076; 81001; 83735; 83880; 84145; 84484; 85007; 85025; 85651; 86140; 93005; 93306; 99285; C9803; G0378; U0003; U0005

== ENCOUNTER → 2021-09-24 06:23 | Outpatient (CLI) | payer OTHER, SELFPAY ==
--- NOTE | 2021-09-24 06:24 | CA_ITS ---
APPROVED REPORT Exam: Pharmacologic Technologist: Arlene Carlos, Ht: 5 ft 11 in Wt: 189 lbs BSA: 2.06 m2 HR: 50 bpm BP: 149/95 mmHg Medical History Medications: Losartan,,,,, Metoprolol Succinate ER,,,,, Stress Test Details Test: LEXISCAN Reason for pharmacologic stress test: physical limitation. HR Resting HR: 56 bpm Max Heart Rate (APMHR): 176.979096 bpm Max HR Achieved: 94 bpm Target HR (85% APMHR): 149.731223 bpm % of APMHR: 53.41 Recovery HR: 74 bpm BP Resting BP: 149/95 mmHg Max BP: 149/95 mmHg Recovery BP: 135.0/84.0 mmHg ECG Clinical Exercise duration: 04:00 min Highest Stage Achieved: Exercise capacity: 1.0 METs Stress ECG Conclusion Symptoms: nausea, chest pressure. ST-T Changes: <1.5mm ST changes. Electronically signed by : Oren Mcgill MD 09/24/2021 18:48:28
--- NOTE | 2021-09-24 06:24 | NM_ITS ---
APPROVED REPORT Exam: Nuclear Stress Test Indication: HTN, TOB USE, C.P., FATIGUE, SYNCOPE Patient Location: Outpatient Stress Tech: Arlene Lucas [place] Tech:June Carrion ARRT RT(R)(N) Ht: 5 ft 11 in Wt: 190 lbs HR: 56 bpm BP: 149/95 mmHg BSA: 2.06 m2 TID: 1.13 BMI: 26.4 History: HTN, TOB USE, C.P., FATIGUE, SYNCOPE Procedure: Patient received a 0.4 mg of intravenous Lexiscan, resting heart rate 56 bpm, resting blood pressure 149/95 mmHg, with Lexiscan maximum heart rate achived was 94 bpm which is Less than 85 % of the maximum predicted heart rate and blood pressure was 149/95 mmHg. With Lexiscan, patient denied any complaint of chest pain. Electrocardiogram Resting electrocardiogram showed sinus bradycardia, with Lexiscan there is less than 1.[address] segment depression noted from the baseline EKG. The EKG portion of the Lexiscan is nondiagnostic. Cardiac Stress and Resting SPECT Images: Cardiac Stress and Resting SPECT images were obtained using technetium 99m Myoview 30.3 mCi stress and 10.48 mCi at rest. Gated SPECT analysis of segmental wall motion and calculation of the ejection fraction also done. Prone images were also obtained. Cardiac stress and rest SPECT images show uniform myocardial activity without segmental perfusion abnormality, computer derived ejection fraction is 60% with no regional wall motion abnormality, right ventricle is normal size and contractility. Conclusion: 1. The EKG portion of the Lexiscan is nondiagnostic. 2. No scintigraphic evidence of reversible ischemia seen, computer derived ejection fraction is 60% with no regional wall motion abnormality, right ventricle is normal size and contractility. 3. Normal Lexiscan Myoview study. Electronically signed by : Oren Mcgill MD 09/24/2021 18:51:11
--- NOTE | 2021-09-24 06:24 | CA_ITS ---
FINAL REPORT TECHNIQUE: Grayscale, color Doppler and duplex Doppler ultrasound of the kidneys, aorta and renal arteries was performed. Multiple velocities were measured. CLINICAL HISTORY: HTN, Smoker FINDINGS: Aorta velocity: 108 cm/sec Right kidney: 10.3 cm. No evidence of hydronephrosis or mass. Right intrarenal RI: 0.63 Right renal artery velocity: 168 cm/sec. Right RAR (Renal artery-Aortic Ratio): 1.56 Left Kidney: 11.0 cm. No evidence of hydronephrosis or mass. Left intrarenal RI: 0.65 Left renal artery velocity: 184 cm/sec. Left RAR (Renal Artery-Aortic Ratio): 1.70 IMPRESSION: No evidence of significant right renal artery stenosis. Less than 60% left renal artery stenosis. CT angiogram or postcontrast MR angiogram would be more sensitive for evaluation of possible renal artery stenosis. Reviewed, Interpreted and Dictated by Alexandr Ferrer III, MD Transcribed by Jarrod Holder Authenticated and [facility]
== END ==
PROVIDERS: PCP Family Medicine; Visit Provider Nurse Practitioner
DX: R42 Dizziness and giddiness (principal); R55 Syncope and collapse; I10 Essential (primary) hypertension; Z72.0 Tobacco use
CPT/HCPCS: 78452; 93017; 93976; A9502; J2785

== ENCOUNTER 2022-06-29 18:45 | Emergency (ER) | payer OTHER, SELFPAY ==
[2022-06-29 19:04] VITALS: BP 149/101; PULSE 78; RESP 16; TEMP 37.1; O2SAT 95; BMI 27.8
[2022-06-29 19:48] VITALS: BP 147/103; PULSE 98; RESP 20; TEMP 36.9; O2SAT 98
--- NOTE | 2022-06-29 21:10 | HMH.EDGENADL ---
Discharge Plan Disposition Patient Disposition: Home, Self-Care Condition: Good Prescriptions Prescriptions: No Action metoprolol succinate 25 MG tablet extended release 24 hr 25 mg PO DAILY Qty: 30 0RF losartan 50 mg tablet 50 mg PO DAILY Qty: 30 0RF Referrals Follow up/Referrals: Fransisco Pedro MD [Primary Care Provider] - See instructions Clinical Impressions Clinical Impression: Foreign body (FB) in soft tissue Instructions Patient Instructions: DI for Laceration Repair Discharge ED Provider: Tani Cueto General Adult HPI General Chief complaint: Wound/Laceration Stated complaint: ran thorn in right in thumb and under index finger Time Seen by Provider: 06/29/22 18:51 Mode of Arrival: Ambulatory Source of Information: Patient and Spouse Limitations: No Limitations Description of Symptoms (Recalled from ER Triage Doc. by RN): 47 yo M presents with c/o puncture wound from red thorn. pt reports that he was digging today and his hand was tuck with a thorn, puncture wound on right hand near thumb area, and right index finger. History of Present Illness HPI narrative: Very nice 47-year-old gentleman complains of a puncture wound to his right thenar eminence. States he was stuck by a thorn. Unsure if there is still a thorn in his finger. Related Data Previous Rx's Medication Instructions Recorded losartan 50 mg tablet 50 mg PO DAILY Hypertension #30 09/10/21 tabs metoprolol succinate 25 mg 25 mg PO DAILY #30 tabs 09/10/21 tablet,extended release 24 hr Allergies Allergy/AdvReac Type Severity Reaction Status Date / Time No Known Allergies Allergy Verified 10/01/21 09:17 [facility] Disclaimer: The information contained in this section may have been updated after the patient was seen, as this information can be updated by other users. Medical History (Updated 06/29/22 @ 19:44 by Tani Cueto MD) Dizziness Near syncope Social History Smoking Status: Current every day smoker tobacco type: cigarettes packs per day: 1 alcohol intake: current counseling provided: none substance use type: marijuana current occupational status: employed Travel in the last 8 weeks: Inside the [place] household members: none housing: house caffeine: Yes ROS Obtained: Yes All systems reviewed & no additional complaints except as documented Physical Exam General General appearance: alert and in no apparent distress Head Head exam: atraumatic and normocephalic ENT ENT exam: Present normal exam Chest Chest inspection: Present normal inspection Respiratory Respiratory exam: Present normal lung sounds bilaterally Cardiovascular Cardiovascular exam: Present regular rate and normal rhythm Abdominal Exam Abdominal exam: Present soft Extremities Exam Extremities exam: Present other (Puncture wound to the right thenar eminence. No obvious foreign body noted. Median, radial, ulnar nerves are intact. Brisk cap refill. Normal sensation to light touch in the thumb. Wound is probed at length, unable to locate foreign body.) Neurological Exam Neurological exam: Present alert Medical Decision Making Sergio Inquiry Pt receiving controlled substance: No Vital Signs: 06/29/22 19:04 06/29/22 19:48 Temperature 98.7 F 98.5 F Temperature Source Oral Pulse Rate 98 H Pulse Rate [Left] 78 Respiratory Rate 16 20 Blood Pressure 147/103 H Blood Pressure [Right Arm] 149/101 H Blood Pressure Mean [Right Arm] 117 02 Sat by Pulse Oximetry 95 Oxygen Delivery Method Room Air Room Air Orders (Tests/Meds): ED MEDICATIONS Discontinued Medications Generic Name Dose Route Start Last Admin Trade Name Freq PRN Reason Stop Dose Admin Tetanus/Reduced Diphtheria/Acell Pertussis 0.5 ml 06/29/22 18:57 Tet/Diphth/Pert-Adult 0.5ml Syringe IM 06/29/22 18:58 .ONCE ONE Medical Decision Narrative: Patient presents with a puncture wound to the formerly [facility]
== END 2022-06-29 19:49 | disposition home or self-care (01) ==
PROVIDERS: Emergency Provider Emergency Medicine; PCP Family Medicine
DX: S61.240A Puncture wound with foreign body of right index finger without damage to nail, initial encounter (principal); W45.8XXA Other foreign body or object entering through skin, initial encounter; Z23 Encounter for immunization
CPT/HCPCS: 90471; 96372; 99283; 99284